=== PATIENT | male | born 2000 | race Hispanic/Latino ===

== ENCOUNTER 2024-03-30 14:59 | Emergency (ER) | payer BC ==
[~2024-03-30] VITALS: Ht 175.3 cm; Wt 58.5 kg
[2024-03-30] MEDS ORDERED: IBUP-2070 PO (16:15)
[2024-03-30] MEDS ORDERED: CLIN-141 PO (16:15)
--- NOTE | 2024-03-30 16:16 | ERN ---
ED Note History of Present Illness Stated Complaint: TOOTHACHE Chief Complaint: Tooth Ache/Pain Time Seen by MD: 15:07 Dictation: PATIENT IS A 23-YEAR-OLD MALE HERE WITH COMPLAINTS OF LEFT PREMOLAR PAIN SWELLING WITH DENTAL DECAY HE HAS HAD FOR THREE YEARS. HE STATES HE WAS SEEING A DENTIST WHO WAS PUT A GOING TO PUT A CAP ON HOWEVER THE DENTIST. SEE AND A BECAUSE HE OWED HIM MONEY. HE HAS NOT BEEN TO SEE ANOTHER DENTIST. NO FEVER NO CHILLS NO NAUSEA VOMITING. Allergies: Coded Allergies: Penicillins (Unverified Allergy, Unknown, 03/30/24) shellfish derived (Unverified Allergy, Unknown, 03/30/24) Past Medical History Past Medical History: No Pertinent History Surgical History: None RN Note Reviewed/Agreed w/PFSH: Yes Review of System Dictation CONSTITUTIONAL: NEGATIVE EXCEPT FOR HPI HEAD/FACE: NEGATIVE EXCEPT FOR HPI EENT: NEGATIVE EXCEPT FOR HPI DENTALGIA WITH DENTAL DECAY RESPIRATORY: NEGATIVE EXCEPT FOR HPI GASTROINTESTINAL/ABDOMINAL: NEGATIVE EXCEPT FOR HPI GENITOURINARY: NEGATIVE EXCEPT FOR HPI MUSCULOSKELETAL: NEGATIVE EXCEPT FOR HPI INTEGUMENTARY: NEGATIVE EXCEPT FOR HPI NEUROLOGICAL/PSYCH: NEGATIVE EXCEPT FOR HPI HEMATOLOGIC/LYMPHATIC: NEGATIVE EXCEPT FOR HPI ALL SYSTEMS NEGATIVE, EXCEPT NOTED ABOVE. 13 POINT REVIEW OF SYSTEMS ASSESSED AND ALL NEGATIVE EXCEPT FOR ABOVE. Initial Vital Sign VS Vital Signs Date Time Temp Pulse Resp B/P (MAP) Pulse Ox O2 Delivery O2 Flow Rate FiO2 03/30/24 15:02 98.1 56 16 158/95 Room Air 0 03/30/24 15:07 98 21 Physical Exam Dictation VITAL SIGNS REVIEWED GENERAL APPEARANCE: ALERT, ORIENTED X 3, NO ACUTE DISTRESS, WELL DEVELOPED, NOURISHED. HEAD AND FACE: NON-TRAUMATIC. EYES: PERRL, PINK CONJUNCTIVAS, EYELID NO TRAUMA, ANTERIOR CHAMBER WITH ARCUS SENILIS. EARS: PINNAS INTACT AND NO SIGNS OF TRAUMA OR ERYTHEMA EAR CANALS CLEAR AND NO DISCHARGE TM NO ERYTHEMA NOSE: NO DISCHARGE, NO BLEEDING. OROPHA DENTAL DECAY WITH GINGIVAL TENDERNESS TOOTH 20. POOR DENTITION PHARYNX CLEAR,NO ERYTHEMA, TONSILS NO EXUDATES, NO ABSCESSES NOTED, MUCOUS MEMBRANE MOIST NECK: SUPPLE, NON-TENDER, NO THYROMEGALY, NO MASSES, NO JVD, NO BRUITS BREAST:DEFERRED CHEST:NO TENDERNESS, NO CREPITUS, NO PARADOXICAL MOVEMENT, NO RETRACTIONS LUNGS:CLEAR, WELL-VENTILATED, SYMMETRIC, NO RALES, NO WHEEZING, NO RHONCHI, NO STRIDOR, GOOD BREATH SOUNDS BILATERALLY HEART: REGULAR RATE, REGULAR RHYTHM, NO MURMUR, NO GALLOPS VASCULAR: NO PERIPHERAL EDEMA, ABDOMEN: SOFT, POSITIVE BOWEL SOUNDS, NONDISTENDED, NO GUARDING, NONTENDER, NO REBOUND, NO MASSES NO HEPATOMEGALY, NO SPLENOMEGALY, NO MORALES'S SIGN, NO HERNIAS. RECTAL: DEFERRED GENITAL: DEFERRED NEUROLOGICAL: NORMAL SPEECH, MOTOR FUNCTION INTACT, SENSORY FUNCTION INTACT MUSCULOSKELETAL: NECK NONTENDER, FULL RANGE OF MOTION, BACK NONTENDER, FULL RANGE OF MOTION, EXTREMITIES: NONTENDER, FULL RANGE OF MOTION SKIN: COLOR PINK, DRY, NO TURGOR, NO RASH, NO LACERATIONS, NO ABRASIONS, NO CONTUSIONS. LYMPHATIC: DEFERRED Results (Laboratory/Radiology) Labs Reviewed?: Yes ED Course ED Course Orders Procedure Category Date Status Time Ketorolac 60mg/2ml PHA 03/30/24 In Process (Toradol 60mg/2ml) 16:30 Current Medications Medications (Trade) Dose Ordered Sig/Cathie Route PRN Reason Start Time Stop Time Status Last Admin Dose Admin Ketorolac Tromethamine (toRADol 60MG/ 2ML) 60 mg ONCE ONCE IM 03/30/24 16:30 03/30/24 16:31 Vital Signs Date Time Temp Pulse Resp B/P (MAP) Pulse Ox O2 Delivery O2 Flow Rate FiO2 03/30/24 15:07 98.1 56 16 158/95 98 Room Air* 0 21 03/30/24 15:02 98.1 56 16 158/95 Room Air 0 SIXTEEN 12, PATIENT TOLD LOOK IN HIS YELLOW PAGES FOR A [place] DENTIST WITH A AN EMERGENCY NUMBER FOR CARE. WE WILL BE GIVEN TORADOL AND SENT HOME WITH CLINDAMYCIN. Medical Decision Making MDM MEDICAL DISCHARGE MAKING BASED ON EMPIRIC TREATMENT FOR DENTALGIA AND DENTAL CARIES PATIENT GIVEN TORADOL IM DISCHARGED HOME ON CLINDAMYCIN IBUPROFEN TOLD TO LOOKING THE YELLOW PAGES FOR A DENTIST WITH A AN AFTER HOURS EMERGENCY NUMBER FOR TREATMENT. DX & DISP Disposition: Discharge Departure Impression: Primary Impression: Dental caries extending into pulp Additional Impression: Dentalgia Condition: Stable Scripts Ibuprofen (Ibuprofen) 600 Mg Tablet 1 TAB PO TID for pain for 10 Days, #30 TAB 0 Refills with food Prov: ASTRID RENDON [employer] 03/30/24 Clindamycin HCl (Clindamycin HCl) 300 Mg Capsule 1 CAP PO QID for 10 Days, #40 CAP 0 Refills Prov: ASTRID RENDON [employer] TE[employer] 03/30/24 Additional Instructions: FOLLOW-UP WITH PRIMARY CARE PROVIDER IN 1 TO 2 DAYS. TAKE MEDICATIONS DIRECTED HERE IN THE EMERGENCY ROOM. OKAY TO CONTINUE HOME MEDICATIONS UNLESS OTHERWISE DISCUSSED DURING YOUR VISIT IN THE EMERGENCY ROOM TODAY. RETURN TO YOUR NEAREST EMERGENCY ROOM IF SYMPTOMS WORSEN OR IF THERE IS NO IMPROVEMENT. CALL 911 IF YOU NEED IMMEDIATE ASSISTANCE. TAKE TYLENOL OR MOTRIN [id number] NEEDED AND IF NO CONTRAINDICATIONS ARE PRESENT. INCREASE ORAL HYDRATION. A WOUND CULTURE OR URINE CULTURE WAS ORDERED HERE IN THE EMERGENCY ROOM DEPARTMENT PLEASE FOLLOW-UP WITH PRIMARY CARE PROVIDER AND ADVISE THEM TO GET REPEAT PORTS FROM OUR FACILITY. IF YOU HAD ANY BUCKY WRAP/SPLINTS THAT WERE APPLIED HERE, PLEASE DO NOT REMOVE THEM UNTIL YOU SEE YOUR PRIMARY CARE OR SPECIALTY. TAKE ANTIBIOTICS DIRECTED UNTIL GONE., LOOKING THE YELLOW PAGES FOR A DENTIST WITH AN AFTER HOURS EMERGENCY NUMBER FOR FOLLOW UP AND MANAGEMENT. Referrals: SELF,REFERRAL (PCP) Time of Disposition: 16:15 I have reviewed the case, and I agree with, Diagnosis and Plan ASTRID RENDON NP Mar 30, 2024 16:16
[2024-03-30 16:33] VITALS: BP 128/76; PULSE 71; RESP 16; TEMP 98.4; O2SAT 98
[2024-03-30] MEDS: ketOROlac 60 MG VIAL (30MG/ML) IM ONE (16:55)
== END 2024-03-30 16:57 | disposition home or self-care (01) ==
LOC: EDH 14:59
DX: K02.9 Dental caries, unspecified (principal); Z88.0 Allergy status to penicillin
CPT/HCPCS: 99284; 96372; J1885